=== PATIENT | male | born 1950 | race Two or more races ===

== ENCOUNTER 2017-06-10 08:33 | Outpatient (CLI) | payer OTHER ==
[~2017-06-10 08:33] MED LIST: ACCUPRIL40 MG
== END 2017-06-10 09:07 | disposition home or self-care (01) ==
LOC: RAD 501 08:33
DX: I10 Essential (primary) hypertension (principal)

== ENCOUNTER 2017-06-24 05:45 | Day surgery (SDC) | payer OTHER ==
[~2017-06-24 05:45] MED LIST changes: +METFORMIN HCL500 MG PO
== END 2017-06-24 11:15 | disposition home or self-care (01) ==
LOC: CIR.AMB 05:45
DX: M75.122 Complete rotator cuff tear or rupture of left shoulder, not specified as traumatic (principal); M25.312 Other instability, left shoulder; S46.812A Strain of other muscles, fascia and tendons at shoulder and upper arm level, left arm, initial encounter

== ENCOUNTER 2020-02-29 09:13 | Outpatient (CLI) | payer OTHER | END 2020-02-29 09:20 | disposition home or self-care (01) | LOC: RAD 09:13 | PROVIDERS: ATTEND Urology | DX: D49.519 Neoplasm of unspecified behavior of unspecified kidney (principal) ==

== ENCOUNTER 2021-10-23 09:57 | Emergency (ER) | payer OTHER ==
[~2021-10-23] VITALS: Ht 167.6 cm; Wt 96.2 kg
[2021-10-23] MEDS ORDERED: OMEPRAZOLE20 MG PO (10:23)
== END 2021-10-23 14:11 | disposition home or self-care (01) ==
LOC: ER 09:57
DX: K80.20 Calculus of gallbladder without cholecystitis without obstruction (principal); R10.84 Generalized abdominal pain

== ENCOUNTER 2021-11-12 06:46 | Day surgery (SDC) | payer OTHER ==
[~2021-11-12] VITALS: Ht 167.6 cm; Wt 93.0 kg
[~2021-11-12 06:46] MED LIST changes: +OMEPRAZOLE20 MG PO
[2021-11-12] MEDS ORDERED: PERCOCET 5-3251 EACH PO (11:58)
== END 2021-11-12 14:45 | disposition home or self-care (01) ==
LOC: CIR.AMB 06:46
PROVIDERS: ATTEND Surgery
DX: K80.10 Calculus of gallbladder with chronic cholecystitis without obstruction (principal); Z20.822 Contact with and (suspected) exposure to COVID-19; I10 Essential (primary) hypertension; E66.9 Obesity, unspecified; E11.9 Type 2 diabetes mellitus without complications; Z79.84 Long term (current) use of oral hypoglycemic drugs